=== PATIENT | male | born 1970 | race Caucasian/White ===

== ENCOUNTER 2024-03-28 18:08 | Emergency (ER) | payer OTHER, SELFPAY ==
[2024-03-28 18:11] VITALS: BP 107/67; PULSE 81; RESP 18; TEMP 37.4; O2SAT 95; BMI 28.2
--- NOTE | 2024-03-28 19:50 | CRLHL7_ITS ---
For Patients: As a result of the Century Cures Act, medical imaging exams and procedure reports are released immediately into your electronic medical record. You may view this report before your referring provider. If you have questions, please contact your health care provider. INDICATION: Dyspnea on exertion TECHNIQUE: Chest 2 views. COMPARISON: None. FINDINGS: Cardiovascular and mediastinum: Heart size is normal. Unremarkable mediastinum. Lungs and pleural spaces: Lungs are clear. No sign of pleural effusion. No pneumothorax. Bones and soft tissues: No significant findings. IMPRESSION: No acute findings. Dictated by Daya Jose MD @ 03/28/2024 8:24:19 PM (Electronically Signed)
--- NOTE | 2024-03-28 19:52 | ED.CHESTPAIN ---
HPI - Chest Pain General Chief Complaint: Chest Pain Stated Complaint: tightness in chest, dizzy, fatigue Time Seen by Provider: 03/28/24 19:37 History of Present Illness HPI narrative: This 53-year-old male comes in reporting left upper anterior chest discomfort that has been rather constant over the past week or so. He does not report any nausea, vomiting, diaphoresis. He states that he does feel lightheaded when getting up too quickly. This has happened over the past few years but may be is a bit worse recently. He states he has also had some chest discomfort on and off but this feels of different. He also states that he seems to be less and less tolerant of exertion. He states that he gets short of breath when going up 8 or 10 steps and sometimes feels lightheaded. This also has been happening over the past few years but seems to be worse recently. He does not report any chest pain related to exertion however. He does have some cardiac risk factors including hypertension and hypercholesterolemia which she is treating. He does not have diabetes and does not smoke but does report a family history of coronary artery disease. His brothers have had stents placed. Related Data Home Medications ?Medication ?Instructions ?Recorded ?Confirmed atorvastatin 10 mg tablet mg DAILY 03/28/24 hydrochlorothiazide 12.5 mg tablet mg DAILY 03/28/24 lisinopril 40 mg tablet mg DAILY 03/28/24 omeprazole 40 mg capsule,delayed mg DAILY 03/28/24 release trazodone 50 mg tablet mg 03/28/24 Allergies Allergy/AdvReac Type Severity Reaction Status Date / Time No Known Drug Allergies Allergy Verified 03/28/24 18:20 Review of Systems Status of ROS Reports: 10 or more systems reviewed and unremarkable except as noted in History and below Narrative Constitutional: No fevers, no weight gain or loss. Eyes: No discharge. No vision changes. HENT: No congestion, no sore throat, no ear pain. Cardiovascular: No palpitations. Respiratory: No wheezes, no cough. Shortness of breath with exertion. Gastrointestinal: No abdominal pain, no vomiting, no diarrhea. Genitourinary: No dysuria, no hematuria. Musculoskeletal: Normal range of motion. Skin: No rashes, no pruritis. Neurological: No dizziness, weakness, sensory change, speech change. Endo/Heme/Allergies: No bruising or bleeding. No polydipsia. Pysch: no suicidality, no anxiety, no insomnia. All other systems reviewed and are negative. Exam Narrative Exam Narrative: Constitutional: Well-developed, well-nourished, no acute distress. HEENT: Normocephalic, atraumatic. Neck: Normal range of motion. Nontender. Supple. Heart: Regular. No murmurs. Normal rate. Intact distal pulses. Lungs: Clear to auscultation. No wheezes, rhonchi, or rales. Pain is located in left upper anterior chest and is rather constant and not reproducible when taking a deep breath or palpating in this area. Abdomen: Normal bowel sounds. Nontender. No rebound tenderness. Genitalia: Deferred. Back: No midline tenderness. Normal range of motion. Extremities: Normal range of motion. No injury. Skin: Intact. No rash. Warm. No erythema or pallor. Neurologic: No altered sensation. No weakness. Alert and oriented. Psychiatric: No suicidality. No anxiety or depression. No insomnia. Nursing notes and vitals signs are reviewed. Const Vital Signs, click to edit/add: Vital Signs - 24 hr 03/28/24 18:11 Temperature 99.4 F Pulse Rate [Right Pulse Oximeter] 81 Respiratory Rate 18 Blood Pressure [Right Upper Arm] 107/67 Pulse Oximetry 95 Oxygen Delivery Method Room Air Course Vital Signs Vital signs: Initial Vital Signs Temperature 99.4 F 03/28/24 18:11 Temperature Source Temporal Artery Scan 03/28/24 18:11 Pulse Rate 81 03/28/24 18:11 Pulse Rhythm Regular 03/28/24 18:11 Respiratory Rate 18 03/28/24 18:11 Blood Pressure 107/67 03/28/24 18:11 Blood Pressure Mean 80 03/28/24 18:11 Blood Pressure Position Sitting 03/28/24 18:11 Pulse Oximetry 95 03/28/24 18:11 Oxygen Delivery Method Room Air 03/28/24 18:11 Vital Signs Temperature 99.4 F 03/28/24 18:11 Pulse Rate 81 03/28/24 18:11 Respiratory Rate 18 03/28/24 18:11 Blood Pressure 107/67 03/28/24 18:11 Pulse Oximetry 95 03/28/24 18:11 Oxygen Delivery Method Room Air 03/28/24 18:11 Temperature 99.4 F 03/28/24 18:11 Pulse Rate 81 03/28/24 18:11 Respiratory Rate 18 03/28/24 18:11 Blood Pressure 107/67 03/28/24 18:11 Pulse Oximetry 95 03/28/24 18:11 Oxygen Delivery Method Room Air 03/28/24 18:11 MDM - Chest Pain MDM Narrative Medical decision making narrative: This patient comes in reporting random chest discomfort as described above. He also reports some shortness of breath and mild lightheadedness when exerting himself but never has chest pain when doing so. His EKG is completely normal and his troponin returns at 0. Additionally his D-dimers in normal range to the rest of his labs all also normal. This was reassuring to him. I did recommend a stress test for further evaluation. He plans to follow-up with his primary physician in this regard. Lab Data Labs: Lab Results 03/28/24 03/28/24 Range/Units 18:44 20:01 WBC 4.68 (4.50-11.00) K/uL RBC 4.30 (4.30-5.90) m/uL Hgb 13.2 L (13.5-17.5) gm/dL Hct 38.4 (37.0-53.0) % MCV 89 (80-100) fL MCH 31 (26-34) pg MCHC 34 (32-36) gm/dL RDW Coeff of Bala 12.0 (11.5-15.5) % Plt Count 205 (140-440) K/uL Neut % (Auto) 57.2 (42.0-72.0) % Lymph % (Auto) 29.1 (20-44) % Coal % (Auto) 9.0 (0.0-11.0) % Eos % (Auto) 4.3 (0.0-7.0) % Baso % (Auto) 0.4 (0.0-3.0) % Neut # (Auto) 2.68 (1.7-7.0) K/uL Lymph # (Auto) 1.36 (0.90-2.90) K/uL Coal # (Auto) 0.40 (0.00-0.90) K/UL Eos # (Auto) 0.20 (0.00-0.50) K/uL Baso # (Auto) 0.02 (0.00-0.30) K/uL Abs Immat Gran (auto) 0.00 (0.00-0.30) K/uL Imm/Tot Granulo (auto) 0.0 % D-Dimer Quant (PE/DVT) 0.30 (0.00-0.50) ug/ml Sodium 136 (135-149) mmol/L Potassium 3.9 (3.6-5.1) mmol/L Chloride 104 (96-114) mmol/L Carbon Dioxide 24 (20-32) mmol/L Anion Gap 8 (7-15) mEq/L BUN 24 (7-30) mg/dL Creatinine 1.0 (0.5-1.5) mg/dL Estimated Creat Clear 97.04 Estimated GFR 89 ml/min Glucose 106 (60-115) mg/dL Calcium 9.2 (8.4-10.6) mg/dL POC Troponin I 0.00 L (0.01-0.04) ng/ml Imaging Data Chest x-ray: Radiologist's impression: No acute findings. ECG Data Attestation: I personally reviewed and interpreted this ECG as follows: Interpretation: Normal sinus rhythm. Rate is 75 beats per minute. There are no ST or T-wave abnormalities. Discharge Plan Discharge Clinical Impression: Atypical chest pain Patient Disposition: Home, Self-Care Condition: Stable Additional Instructions: Continue current plans. Activity as tolerated. Follow up with MD for ongoing management. Consider a stress echocardiogram for further evaluation. Prescriptions: No Action trazodone 50 mg tablet Patient Comments: [NO ORIGINAL SIG] atorvastatin 10 mg tablet DAILY omeprazole 40 mg capsule,delayed release(DR/EC) DAILY lisinopril 40 mg tablet DAILY hydrochlorothiazide 12.5 mg tablet DAILY Follow Up/Referrals: Juan Tubbs MD [Referring] - Stand Alone Forms: [employer] Info Instructions
[2024-03-28 20:08] LABS: Basophils Absolute Auto 0.02 K/uL (0.00-0.30); Basophils Percent Auto 0.4 % (0.0-3.0); Eosinophils Percent Auto 4.3 % (0.0-7.0); Hematocrit 38.4 % (37.0-53.0); Hemoglobin* 13.2 gm/dL (13.5-17.5); Lymphocytes Absolute Auto 1.36 K/uL (0.90-2.90); Lymphocytes Percent Auto 29.1 % (20-44); Mean Corpuscular HGB Conc 34 gm/dL (32-36); Mean Corpuscular Hemoglobin 31 pg (26-34); Mean Corpuscular Volume 89 fL (80-100); Neutrophils Absolute Auto 2.68 K/uL (1.7-7.0); Neutrophils Percent Auto 57.2 % (42.0-72.0); Platelet Count* 205 K/uL (140-440); White Blood Count* 4.68 K/uL (4.50-11.00)
[2024-03-28 20:26] LABS: Slide Review Reflex No
[2024-03-28 20:27] LABS: Chloride* 104 mmol/L (96-114); Potassium* 3.9 mmol/L (3.6-5.1); Sodium* 136 mmol/L (135-149)
[2024-03-28 20:30] LABS: Anion Gap 8 mEq/L (7-15); Blood Urea Nitrogen* 24 mg/dL (7-30); Carbon Dioxide* 24 mmol/L (20-32); Est. Creatinine Clearance* 97.04; Estimated Glomerular Filt Rate 89 ml/min
[2024-03-28 20:31] LABS: Calcium* 9.2 mg/dL (8.4-10.6); Glucose* 106 mg/dL (60-115)
== END 2024-03-28 21:09 | disposition home or self-care (01) ==
PROVIDERS: Emergency Provider Emergency Medicine Emergency Medical Services
DX: R07.9 Chest pain, unspecified (principal)
CPT/HCPCS: 36415; 71046; 80048; 84484; 85025; 85379; 93005; 99284